=== PATIENT | female | born 1985 | race Caucasian/White ===

== ENCOUNTER 2017-06-09 17:00 | Emergency (ER) | payer OTHER ==
[2017-06-09 17:14] VITALS: PULSE 76; RESP 18
--- NOTE | 2017-06-09 18:05 | ED ---
SOB HPI - General Chief Complaint: Shortness of Breath Stated Complaint: Difficulty Breathing Time Seen by Provider: 06/09/17 17:21 Source: patient, RN notes reviewed Mode of arrival: ambulatory Limitations: no limitations - History of Present Illness Initial Comments: This a 31-year-old female presents emergency Department chief complaint of shortness of breath. Patient states that she had a sudden onset of right-sided back and chest pain that started earlier today while showering. Patient has a history of spontaneous pneumothorax with chest tube. Patient states that this pain feels exactly the same. She states that feels like some stabbing her right lung. Patient states she does have some discomfort with deep inspiration. Denies any left-sided chest pain or palpitations denies headache, dizziness, trauma, nausea vomiting. - Related Data Home Medications Medication Instructions Recorded Confirmed Pnv,Calcium 72/Iron/Folic Acid 1 tab PO DAILY 06/09/17 06/09/17 [ Plus Tablet] Allergies Allergy/AdvReac Type Severity Reaction Status Date / Time No Known Allergies Allergy Verified 06/09/17 17:40 Review of Systems ROS Statement: Those systems with pertinent positive or pertinent negative responses have been documented in the HPI. ROS Other: All systems not noted in ROS Statement are negative. Past Medical History Additional Past Medical History / Comment(s): right lung collapsed in November 2016 History of Any Multi-Drug Resistant Organisms: MRSA Date of last positivie culture/infection: right buttock MDRO Source:: 2007 Additional Past Surgical History / Comment(s): laproscopic surger for endometriosis Past Psychological History: No Psychological Hx Reported Smoking Status: Never smoker Past Alcohol Use History: Occasional Past Drug Use History: None Reported General Exam Limitations: no limitations General appearance: alert, in no apparent distress Head exam: Present: atraumatic, normocephalic, normal inspection Eye exam: Present: normal appearance, PERRL, EOMI. Absent: scleral icterus, conjunctival injection, periorbital swelling ENT exam: Present: normal exam, normal oropharynx, mucous membranes moist, TM's normal bilaterally Neck exam: Present: normal inspection, full ROM. Absent: tenderness, meningismus, lymphadenopathy Respiratory exam: Present: decreased breath sounds (Very minimal on the right). Absent: normal lung sounds bilaterally, respiratory distress, wheezes, rales, rhonchi, stridor Cardiovascular Exam: Present: regular rate, normal rhythm, normal heart sounds. Absent: systolic murmur, diastolic murmur, rubs, gallop, clicks Course Vital Signs 06/09/17 17:09 Temperature 97.6 F Pulse Rate 76 Respiratory 18 Rate Blood Pressure 128/60 O2 Sat by Pulse 100 Oximetry Medical Decision Making - Medical Decision Making 31-year-old female presented for shortness of breath. Patient has a very small pneumothorax in the right lung. Radiologist did notify me of this pneumothorax. She did not meet criteria for chest tube at this time. She will have repeat x-ray tomorrow if symptoms worsen she may need a chest tube this was discussed with the patient. Patient states that if symptoms do get worse that she wants to be seen at the [facility] and she will drive there. Disposition Clinical Impression: Pneumothorax on right Disposition: HOME SELF-CARE Condition: Stable Instructions: Spontaneous Pneumothorax (ED) Additional Instructions: Have repeat x-ray tomorrow.Please return to the Emergency Department if symptoms worsen or any other concerns. Referrals: None,Stated [Primary Care Provider] - 1-2 days Time of Disposition: 18:25
--- NOTE | 2017-06-09 18:11 | XR ---
EXAMINATION TYPE: XR chest 2V DATE OF EXAM: 06/09/2017 COMPARISON: NONE HISTORY: Shortness of breath and chest pain on the right side. She has a history of a pneumothorax. TECHNIQUE: Frontal and lateral views of the chest are obtained. FINDINGS: Small pneumothorax is identified in the right lung apex. The lungs are otherwise clear. Th ere is no pneumothorax or pleural effusion the cardiac silhouette is within normal limits. IMPRESSION: Small right-sided pneumothorax. Findings discussed over the phone with physician assistant Leos by Dr. Lutz at 1805 on June 09, 2017.
[2017-06-09 18:58] VITALS: BP 107/62; TEMP 97.8
== END 2017-06-09 18:50 | disposition home or self-care (01) ==
LOC: EC 17:00
DX: J93.9 Pneumothorax, unspecified (principal); Z86.14 Personal history of Methicillin resistant Staphylococcus aureus infection; Z79.899 Other long term (current) drug therapy
CPT/HCPCS: 71020; 99284

== ENCOUNTER → 2018-01-28 | Outpatient (CLI) | payer OTHER ==
--- NOTE | 2018-01-29 08:59 | CT ---
EXAMINATION TYPE: CT chest w con DATE OF EXAM: 01/28/2018 COMPARISON: Chest radiograph dated 06/10/2017 HISTORY: Hx of pneumothorax. Follow-up exam. CT DLP: 427 mGycm. Automated Exposure Control for Dose Reduction was Utilized. TECHNIQUE: CT scan of the thorax is performed following with IV Contrast, patient injected with 100 mL of Isovue 300. FINDINGS: LUNGS: The lungs are grossly clear, there is no concerning parenchymal mass or nodule identified. T here is no pleural effusion or pneumothorax seen. The tracheobronchial tree is patent. MEDIASTINUM: There are no greater than 1 cm hilar or mediastinal lymph nodes. There is triangular-sh aped residual thymic tissue within the anterior superior mediastinum. No pericardial effusion is seen . OTHER: No additional significant abnormality is seen. IMPRESSION: No recurrent pneumothorax, emphysematous change, or interstitial lung disease. No focal c onsolidation.
== END | disposition home or self-care (01) ==
LOC: RADCTMAIN 15:58
PROVIDERS: ATTEND Internal Medicine Critical Care Medicine
DX: J93.9 Pneumothorax, unspecified (principal)
CPT/HCPCS: 71260; Q9967

== ENCOUNTER → 2018-02-13 | Outpatient (CLI) | payer OTHER ==
[2018-02-13 14:45] LABS: Basophils % (A) 0 %; Eosinophils # (A) 0.1 k/uL (0-0.7); Eosinophils % (A) 1 %; HCT 40.8 % (34.0-46.0); HGB 13.2 gm/dL (11.4-16.0); Lymphocytes # (A) 1.3 k/uL (1.0-4.8); Lymphocytes % (A) 24 %; MCH 28.2 pg (25.0-35.0); MCHC 32.4 g/dL (31.0-37.0); Mean Platelet Volume 7.9; Monocytes # (A) 0.3 k/uL (0-1.0); Monocytes % (A) 5 %; Neutrophils # (A) 3.8 k/uL (1.3-7.7); Neutrophils % (A) 68 %; Platelet Count 159 k/uL (150-450); RBC 4.69 m/uL (3.80-5.40); RDW 13.6 % (11.5-15.5); WBC 5.7 k/uL (3.8-10.6)
[2018-02-13 14:46] LABS: Appearance,Urine Clear (Clear); Bacteria,Urine Rare /hpf; Bilirubin,Urine Negative (Negative); Blood,Urine Negative (Negative); Color,Urine Yellow; Glucose,Urine (UA) Negative (Negative); Ketones,Urine Negative (Negative); Leukocyte Esterase,Urine Moderate (Negative); Mucus,Urine Rare /hpf; Nitrite,Urine Negative (Negative); Protein,Urine Negative (Negative); RBC,Urine 3 /hpf (0-5); Specific Gravity,Urine 1.019 (1.001-1.035); Squamous Epithelial Cell,Urine 4 /hpf (0-4); Urobilinogen,Urine <2.0 mg/dL (<2.0); WBC,Urine 4 /hpf (0-5)
[2018-02-13 14:58] LABS: Potassium 4.2 mmol/L (3.5-5.1)
== END | disposition home or self-care (01) ==
LOC: LABWHC1 13:56
PROVIDERS: ATTEND Thoracic Surgery (Cardiothoracic Vascular Surgery)
DX: Z01.812 Encounter for preprocedural laboratory examination (principal); J93.11 Primary spontaneous pneumothorax
CPT/HCPCS: 36415; 80051; 81001; 82565; 84520; 85025

== ENCOUNTER 2018-02-27 05:48 | Inpatient (IN) | payer OTHER ==
[2018-02-20 10:52] VITALS: BMI 20.5
[~2018-02-27 05:48] MED LIST: DEXAMETHASONE SOD PHOSPHATE 10 MG/ML 1 ML VIAL IV ONE; LACTATED RINGERS 1,000 ML IV SCH; MIDAZOLAM 2 MG/2 ML VIAL IV PRN; ONDANSETRON 4 MG/2 ML VIAL IVP ONE; ceFAZolin IN SWFI 2 GM/20 ML SYRINGE IVP ONE
[2018-02-27] MEDS ORDERED: LIDOCAINE 1% 20 ML VIAL (10MG/ML) FOR IV START INTRADERMA ONE (06:39)
[2018-02-27] MEDS ORDERED: MIDAZOLAM 2 MG/2 ML VIAL ONE (07:29)
[2018-02-27] MEDS ORDERED: PROPOFOL 10 MG/ML 20 ML VIAL IV ONE (07:29)
[2018-02-27] MEDS ORDERED: NEOSTIGMINE 1 MG/ML 10 ML VIAL ONE (07:29)
[2018-02-27] MEDS ORDERED: SUCCINYLCHOLINE CHLORIDE 100 MG/5 ML SYR IV ONE (07:29)
[2018-02-27] MEDS ORDERED: GLYCOPYRROLATE 0.2 MG/ML 2 ML VIAL ONE (07:29)
[2018-02-27] MEDS ORDERED: ROCURONIUM BROMIDE 10 MG/ML 10 ML VIAL IV ONE (07:29)
[2018-02-27] MEDS ORDERED: fentaNYL (PF) 50 MCG/ML 2 ML AMP ONE (07:29)
[2018-02-27] MEDS ORDERED: LIDOCAINE 1% INJ 10MG/ML (20 ML MDV) ONE (07:29)
[2018-02-27] MEDS ORDERED: BUPIVACAINE (PF) 0.5% 30 ML VIAL SQ ONE ×2 (08:07)
[2018-02-27] MEDS ORDERED: diphenhydrAMINE 50 MG/ML 1 ML VIAL IVP ONE (09:40)
[2018-02-27] MEDS: HYDROmorphone 0.5 MG/0.5 ML SYRINGE IVP PRN ×7 (09:40→14:19)
--- NOTE | 2018-02-27 10:08 | XR ---
EXAMINATION TYPE: XR chest 1V portable DATE OF EXAM: 02/27/2018 COMPARISON: 01/28/2018 HISTORY: Post VATS TECHNIQUE: Single frontal view of the chest is obtained. FINDINGS: There is a right-sided thoracostomy tube in place post vacuum-assisted thoracostomy proced ure with post thoracostomy changes seen of the right lateral chest and subcutaneous emphysema or soft tissue swelling. Likely pleural reaction versus small residual pneumothorax measures 2 mm in greates t thickness of the right lateral lung apex. Patchy left-sided linear opacities likely relate to atele ctasis and exaggerated by rotation. Osseous structures are intact. Cardiomediastinal silhouette is wi thin normal limits. IMPRESSION: Status post VATS procedure with new right thoracostomy tube and likely 2 mm pleural reac tion versus small residual pneumothorax that can be reassessed on follow-up exams. New minimal left-s ided segmental scattered atelectasis.
--- NOTE | 2018-02-27 10:55 | P.OP ---
Date of Procedure: 02/27/18 Preoperative Diagnosis: Recurrent right spontaneous pneumothorax Postoperative Diagnosis: Same Procedure(s) Performed: Right thoracoscopy with staple apical blebs and mechanical pleurodesis Anesthesia: RIVKA Surgeon: Alden Camacho Call Center Director #1: Phil Gaspar Estimated Blood Loss (ml): 10 IV fluids (ml): 1,000 Urine output (ml): 0 Pathology: other ([place] right upper lobe lung) Condition: stable Disposition: PACU Indications for Procedure: 32-year-old female with recurrent right-sided pneumothorax Operative Findings: Adhesions at the site of previous chest tubes, small area of blebs at apex of lung Description of Procedure: The patient was brought to the operating room, placed supine on the operating table, anesthetized and intubated with a double-lumen endotracheal tube. Tube was positioned with fiberoptic bronchoscopy. Patient was placed in the left lateral decubitus position and the right chest sterilely prepped and draped. Single lung ventilation ensued. 3 one-inch incisions were made in the right chest cavity and the video thoracoscope was introduced. There were adhesions at the site of previous chest tube placement and these were taken down with electrocautery. The entire lung was examined carefully. There were small blebs present in the apex. These were resected with multiple firings of Endo SANJANA stapler. Once we were comfortable that we had excised all of the abnormal tissue, mechanical pleurodesis was performed to the chest wall using sponges. A 28-Polish chest tube was placed through separate stab incision and positioned posterior apically. Chest tube was secured with 0 Ethibond. Chest was irrigated out with some saline and the lung expanded under direct thoracoscopic vision. Thoracoscope was removed. Rib blocks were performed at the level of the incisions with half percent Marcaine. Incisions were closed with layers of Vicryl suture. Dry sterile dressings were applied the patient was turned supine and extubated and transferred to recovery in stable condition.
[2018-02-27] MEDS ORDERED: ONDANSETRON 4 MG/2 ML VIAL IVP PRN (15:09)
[2018-02-27] MEDS ORDERED: ACETAMINOPHEN TAB 325 MG TAB PO PRN (15:09)
[2018-02-27] MEDS ORDERED: DEXTROSE 5%-0.45% NACL 1,000 ML IV SCH (15:09)
[2018-02-27] MEDS ORDERED: IPRATROPIUM-ALBUTEROL 3 ML NEB IH PRN (15:09)
[2018-02-27] MEDS: IPRATROPIUM-ALBUTEROL 3 ML NEB IH SCH ×2 (16:21→19:42)
[2018-02-27] MEDS: ceFAZolin IN SWFI 2 GM/20 ML SYRINGE IVP SCH (16:57)
[2018-02-27] MEDS: KETOROLAC 30 MG/ML 1 ML VIAL IVP SCH ×2 (16:58→20:15)
[2018-02-27] MEDS: traMADol 50 MG TAB PO SCH ×3 (17:21→22:29)
[2018-02-27] MEDS: HEPARIN SODIUM,PORCINE 5,000 UNIT/ML 1 ML VIAL SQ SCH (17:22)
[2018-02-27] MEDS: FAMOTIDINE 20 MG TAB PO SCH (20:19)
[2018-02-28] MEDS: HEPARIN SODIUM,PORCINE 5,000 UNIT/ML 1 ML VIAL SQ SCH ×2 (00:01→10:11)
[2018-02-28] MEDS: KETOROLAC 30 MG/ML 1 ML VIAL IVP SCH ×3 (00:01→12:20)
[2018-02-28] MEDS: ceFAZolin IN SWFI 2 GM/20 ML SYRINGE IVP SCH (00:01)
[2018-02-28 07:15] LABS: Basophils % (A) 0 %; Eosinophils % (A) 0 %; HGB 10.9 gm/dL (11.4-16.0); Lymphocytes # (A) 1.1 k/uL (1.0-4.8); Lymphocytes % (A) 14 %; MCH 27.6 pg (25.0-35.0); MCHC 32.2 g/dL (31.0-37.0); MCV 85.8 fL (80.0-100.0); Monocytes # (A) 0.6 k/uL (0-1.0); Monocytes % (A) 8 %; Neutrophils # (A) 6.2 k/uL (1.3-7.7); Neutrophils % (A) 78 %; Platelet Count 146 k/uL (150-450); RBC 3.96 m/uL (3.80-5.40); RDW 13.4 % (11.5-15.5)
[2018-02-28 07:25] LABS: Anion Gap 2 mmol/L; Blood Urea Nitrogen 11 mg/dL (7-17); Calcium 8.4 mg/dL (8.4-10.2); Carbon Dioxide 30 mmol/L (22-30); Chloride 104 mmol/L (98-107); Glucose 98 mg/dL (74-99); Potassium 4.4 mmol/L (3.5-5.1); Sodium 136 mmol/L (137-145)
[2018-02-28] MEDS: IPRATROPIUM-ALBUTEROL 3 ML NEB IH SCH ×4 (07:50→16:08)
--- NOTE | 2018-02-28 09:22 | XR ---
EXAMINATION TYPE: XR chest 1V DATE OF EXAM: 02/28/2018 COMPARISON: 02/27/2018 HISTORY: Chest pain. Postop VATS TECHNIQUE: Single frontal view of the chest is obtained. FINDINGS: Right apical pneumothorax persists and is sliver in size. Surgical changes seen within the right apic al region. Chest tube is in place unchanged in position from prior examination. The lungs are otherwi se clear. Mediastinum is midline. IMPRESSION: 1. Stable postoperative changes with tiny right apical pneumothorax.
[2018-02-28] MEDS: traMADol 50 MG TAB PO SCH ×2 (10:16→14:42)
[2018-02-28] MEDS: FAMOTIDINE 20 MG TAB PO SCH (10:17)
[2018-02-28 11:16] VITALS: TEMP 98.1
[2018-02-28] MEDS ORDERED: MULTIVITAMINS, THERA 1 EACH TAB PO SCH (12:00)
--- NOTE | 2018-02-28 12:00 | P.PN ---
Subjective Progress Note Date: 02/28/18 Principal diagnosis: Recurrent right spontaneous pneumothorax. POD #1 right thoracoscopy with stable apical blebs and mechanical pleurodesis. The patient is sitting up to bedside edge. She is in no acute distress. Complaining of pain 4 out of 10 on the pain scale to her right chest tube insertion site. Right pleural chest tube remains in place to water seal, no air leak present. She is achieving 1000 L on her incentive spirometry. She has been ambulating in the [address] [place] [address] without difficulty. Objective - Vital Signs Vital signs: Vital Signs Temp 98.5 F 02/28/18 03:22 Pulse 65 02/28/18 03:22 Resp 16 02/28/18 03:22 BP 108/61 02/28/18 03:22 Pulse Ox 99 02/28/18 07:50 Intake & Output 02/27/18 02/28/18 02/28/18 18:59 06:59 18:59 Intake Total 1300 320 Output Total 325 1690 Balance 975 -1370 Weight 56.5 kg Intake: IV 1300 Intake, IV Titration 320 Amount Dextrose 5%-0.45% NaCl 1, 320 000 ml @ 40 mls/hr IV . Q24H ELEAZAR Rx#:[id number] Output: Chest Tube Drainage 40 Chest Tube Right Lateral 40 Chest Drainage 50 Right 50 Urine 200 1600 Estimated Blood Loss 125 Other: Voiding Method Toilet Toilet # Voids 2 - Constitutional General appearance: Present: cooperative, no acute distress - Respiratory Details: Lung sounds are essentially clear throughout. Respirations are symmetrical and nonlabored. Oxygen saturation are 99% on room air. She is achieving 1000 L on her incentive spirometry. Right pleural chest tube in place to water seal. No air leak present. Draining thin serosanguineous drainage, 210 mL output since surgery. - Cardiovascular Details: Regular rhythm and rate. S1 and S2 present, negative for S3, gallop or murmur. Remote telemetry showing normal sinus rhythm heart rate 71. No edema present. - Gastrointestinal Gastrointestinal Comment(s): Abdomen is soft, nontender and nondistended. Active bowel sounds to all 4 abdominal quadrants. No guarding or rigidity. No organomegaly. Tolerating oral intake. - Genitourinary Genitourinary Comment(s): Voiding clear yellow urine. - Integumentary Integumentary Comment(s): Skin is warm and dry. No clubbing or cyanosis present. Right lateral chest incisions clean dry and approximated. No drainage or redness present. - Neurologic Neurologic Comment(s): No focal deficits. Neurologic: Present: CNII-XII intact - Musculoskeletal Musculoskeletal: Present: gait normal, strength equal bilaterally - Psychiatric Psychiatric: Present: A&O x's 3, appropriate affect, intact judgment & insight - Allied health notes Allied health notes reviewed: nursing - Labs CBC & Chem 7: 02/28/18 06:39 02/28/18 06:39 Labs: Abnormal Lab Results - Last 24 Hours (Table) 02/28/18 02/28/18 Range/Units 06:39 06:39 Hgb 10.9 L (11.4-16.0) gm/dL Plt Count 146 L (150-450) k/uL Sodium 136 L (137-145) mmol/L - Imaging and Cardiology Chest x-ray: report reviewed, image reviewed Assessment and Plan (1) Pneumothorax, right Current Visit: Yes Status: Acute Code(s): J93.9 - PNEUMOTHORAX, UNSPECIFIED SNOMED Code(s): 518445932 Plan: 1. We will remove her right pleural chest tube, obtain a chest x-ray 1 hour post chest tube removal. 2. DVT and GI prophylaxis. 3. Pain control per current when necessary orders. 4. Encourage use of her incentive spirometry every hour while awake. 5. Surgical pathology results pending. 6. More recommendations to follow as patient progresses in her care. Anticipate discharge home within the next 24 hours. Time with Patient: Greater than 30
--- NOTE | 2018-02-28 13:15 | XR ---
EXAMINATION TYPE: XR chest 2V DATE OF EXAM: 02/28/2018 COMPARISON: 02/28/2018 HISTORY: Chest tube removal status post VATS TECHNIQUE: Frontal and lateral views of the chest are obtained. FINDINGS: There is no focal air space opacity. Right-sided chest tube has been removed. Right apical postoperative changes noted. There appears to b e a sliver pneumothorax right lung apex. The cardiac silhouette size is within normal limits. The osseous structures are grossly intact. IMPRESSION: 1. Right-sided chest tube has been removed. Right apical postoperative changes noted. There appears to be sliver pneumothorax right lung apex.
[2018-02-28 14:10] VITALS: BP 112/61; RESP 18
--- NOTE | 2018-02-28 14:55 | P.DS ---
Providers Date of admission: 02/27/18 05:48 Expected date of discharge: 02/28/18 Attending physician: Alden Camacho Primary care physician: Stated None - Discharge Diagnosis(es) (1) Pneumothorax, right Current Visit: Yes Status: Acute Hospital Course: FINAL DIAGNOSIS: 1. Recurrent right spontaneous pneumothorax PRINCIPAL PROCEDURE: 1. Right thoracoscopy with staple apical blebs and mechanical pleurodesis HISTORY OF PRESENT ILLNESS: This is a 32-year-old female patient who is followed by Dr. Steven Wheeler from pulmonary medicine on an outpatient basis. Patient has past medical history significant for right-sided chest pain which radiated to her back which would come and go over a several week period. The patient reports that she has had these symptoms on and off for the past 8 or 9 years. Just over a year ago the patient was and was being evaluated by her general teller who she reported her complaints of chest pain to. Her general teller on a physical exam noticed that she had absent right breath sounds. Subsequently a chest x-ray was completed which demonstrated an 85% right pneumothorax. She was subsequently transferred to [place] for further treatment and evaluation. During her hospitalization and [place] she had a chest tube with persistent air leak which resolved over about a 2 week period. Over the past year she continued to have complaints of back pain and some shortness of breath and was subsequently referred to Dr. Wheeler from pulmonary medicine. While being evaluated by Dr. Wheeler A chest x-ray was completed which we demonstrated a 20% right apical pneumothorax. Due to the patient's history of recurrent right pneumothorax she was referred to Dr. Alden Camacho from cardiothoracic surgery for recommendations on possible surgical intervention. Risks and benefits of undergoing a right thoracoscopic procedure were discussed with the patient by Dr. Alden Camacho and the patient requested to proceed with surgery. HOSPITAL COURSE: The patient was admitted to the hospital and after obtaining consent was taken to the operating room where Dr. Alden Camacho performed a right thoracoscopic with staple of apical blebs and mechanical pleurodesis. The patient was subsequently recovered, transferred to [address] [place] [address] for further monitoring and rehabilitation. A right pleural chest tube was in place and was placed on waterseal postoperatively and was removed today 2017 without incident. Patient has been on room air with oxygen saturations are 99%, has been walking in the hallway without difficulty. The patient has received verbal and written discharge instructions and a list of her medications. COMPLICATIONS: There were no postoperative complications. DISCHARGE INSTRUCTIONS: 1. No driving for 2 weeks, or until physician gives their ok. 2. The patient should sleep in their own bed, no medical bed needed. 3. May remove her right chest dressing in 48 hours, and shower. 4. She will need a follow up chest x-ray prior to seeing Dr. Camacho on 2017. 5. The patient is expected to continue the prescribed walking program. 6. Continue pain control per as needed orders. 7. Continue with incentive spirometry 8. Routine incision care, no ointments, lotions or powders on the incisions. 9. Please notify surgeon/nurse practitioner for temperature greater than 101F or purulent drainage from incisions. Plan - Discharge Summary Discharge Rx Participant: Yes New Discharge Prescriptions: New Acetaminophen Tab [Tylenol] 650 mg PO Q6HR PRN tab PRN Reason: Fever and/ or MILD Pain traMADol HCl [Ultram] 50 mg PO QID 3 Days #12 tab Continue Multivitamins, Thera [Multivitamin (formulary)] 1 tab PO DAILY Discharge Medication List Multivitamins, Thera [Multivitamin (formulary)] 1 tab PO DAILY 02/20/18 [History ] Acetaminophen Tab [Tylenol] 650 mg PO Q6HR PRN tab 02/28/18 [Rx] traMADol HCl [Ultram] 50 mg PO QID 3 Days #12 tab 02/28/18 [Rx] Follow up Appointment(s)/Referral(s): Alden Camacho MD [STAFF PHYSICIAN] - 03/13/18 1:45 pm Steven Wheeler DO [Doctor of Osteopathic Medicine] - 1 Week Ambulatory/Diagnostic Orders: XR chest 2V [RAD.AMB] Time Frame: 03/13/18, Facility: [facility], Location: [facility] Activity/Diet/Wound Care/Special Instructions: DISCHARGE INSTRUCTIONS: 1. No driving for 2 weeks, or until physician gives their ok. 2. No lifting, pushing, or pulling more than 10 pounds for 2 weeks. The physician will advise of any restriction changes. 3. Continue pain control per as needed orders. 4. Continue with incentive spirometry and splinting until otherwise directed by the physician. 5. May shower daily using liquid antibacterial soap 48 hours after chest tube removal. No tub baths, hot tubs for 2 weeks. 6. Routine incision care. No powders, lotions, ointments on incisions. 7. Please call surgeon/MOLD HOISTER for temp greater than 101 F or purulent drainage from incisions. 8. Narcotic medications were discussed with the patient, including the potential for misuse, addiction, and abuse. Opiod Start Talking form was reviewed with the patient. Discharge Disposition: HOME SELF-CARE
[2018-02-28 16:21] VITALS: PULSE 80
== END 2018-02-28 17:04 | disposition home or self-care (01) | DRG 165 ==
LOC: 2ORMAIN 05:48 → 6SEL 14:28
PROVIDERS: ADMIT Thoracic Surgery (Cardiothoracic Vascular Surgery); ATTEND Thoracic Surgery (Cardiothoracic Vascular Surgery)
PROC: 0BBC4ZX Excision of Right Upper Lung Lobe, Percutaneous Endoscopic Approach, Diagnostic (ICD-10-PCS; 2018-02-27)
PROC: 0BQC4ZZ Repair Right Upper Lung Lobe, Percutaneous Endoscopic Approach (ICD-10-PCS; 2018-02-27)
PROC: 0W9940Z Drainage of Right Pleural Cavity with Drainage Device, Percutaneous Endoscopic Approach (ICD-10-PCS; 2018-02-27)
PROC: 0B5N4ZZ Destruction of Right Pleura, Percutaneous Endoscopic Approach (ICD-10-PCS; principal; 2018-02-27 07:30)
PROC: 0BPKX0Z Removal of Drainage Device from Right Lung, External Approach (ICD-10-PCS; 2018-02-28)
DX: J93.83 Other pneumothorax (principal)
CPT/HCPCS: 71045; 71046; 80048; 85025; 88307; 94640; 94760

== ENCOUNTER → 2018-03-07 | Outpatient (CLI) | payer OTHER ==
--- NOTE | 2018-03-07 14:13 | XR ---
EXAMINATION TYPE: XR chest 2V DATE OF EXAM: 03/07/2018 COMPARISON: Chest x-ray February 28, 2018. CT chest January 28, 2018. HISTORY: Spontaneous pneumothorax. TECHNIQUE: Frontal and lateral views of the chest are obtained. FINDINGS: There is persistent curvilinear density lateral aspect right suprahilar level. There may b e some lung markings peripheral to this. There is new visualization of horizontal density at level of right minor fissure could reflect linear atelectasis or tiny amount of trapped fluid No mediastinal shift is seen. No suspicious focal airspace opacity or pneumothorax is noted. The cardiac silhouette size is within normal limits. The osseous structures are intact. IMPRESSION: Cannot exclude residual tiny right pneumothorax. At minimum short-term progress two-view chest x-ray is advised.
== END | disposition home or self-care (01) ==
LOC: RADXRMAIN 13:47
PROVIDERS: ATTEND Thoracic Surgery (Cardiothoracic Vascular Surgery)
DX: Z09 Encounter for follow-up examination after completed treatment for conditions other than malignant neoplasm (principal); Z98.890 Other specified postprocedural states
CPT/HCPCS: 71046

== ENCOUNTER → 2018-05-29 | Outpatient (CLI) | payer OTHER ==
[2018-05-29 16:29] LABS: Basophils % (A) 1 %; Eosinophils # (A) 0.1 k/uL (0-0.7); Eosinophils % (A) 1 %; HCT 41.5 % (34.0-46.0); HGB 13.7 gm/dL (11.4-16.0); Lymphocytes # (A) 1.1 k/uL (1.0-4.8); Lymphocytes % (A) 21 %; MCH 27.8 pg (25.0-35.0); Mean Platelet Volume 7.6; Monocytes # (A) 0.3 k/uL (0-1.0); Monocytes % (A) 5 %; Neutrophils # (A) 3.9 k/uL (1.3-7.7); Neutrophils % (A) 71 %; Platelet Count 168 k/uL (150-450); RBC 4.95 m/uL (3.80-5.40); RDW 13.1 % (11.5-15.5); WBC 5.5 k/uL (3.8-10.6)
== END | disposition home or self-care (01) ==
LOC: LABPAT 13:53
PROVIDERS: ATTEND Thoracic Surgery (Cardiothoracic Vascular Surgery)
DX: Z01.812 Encounter for preprocedural laboratory examination (principal); J93.9 Pneumothorax, unspecified
CPT/HCPCS: 36415; 85025

== ENCOUNTER → 2018-05-29 | Outpatient (CLI) | payer OTHER ==
--- NOTE | 2018-05-29 13:29 | XR ---
EXAMINATION TYPE: XR chest 2V DATE OF EXAM: 05/29/2018 COMPARISON: 05/29/2018 HISTORY: Recurrent pneumothoraces TECHNIQUE: Frontal and lateral views of the chest are obtained. FINDINGS: There is a recurrent right-sided pneumothorax with maximal right apical pleural separation of 1 cm and right basilar pleural separation of 1.4 cm. There also appears to be a scant amount of f luid likely hydropneumothorax. Although the right pneumothorax is estimated to be 15-20% this could b e larger anteriorly as there is right to left mediastinal shift concerning for tension pneumothorax. Cardia mediastinal silhouette is nonenlarged. No focal consolidation or left-sided pneumothorax. Osse ous structures are grossly intact. IMPRESSION: Recurrent right-sided pneumothorax with findings suspicious for hydropneumothorax and te nsion pneumothorax. Findings were communicating to the ordering physician's office at 1:12 PM with re commendation for the patient to go to the ER.
== END | disposition home or self-care (01) ==
LOC: RADXRMAIN 12:38
PROVIDERS: ATTEND Thoracic Surgery (Cardiothoracic Vascular Surgery)
DX: J93.9 Pneumothorax, unspecified (principal)
CPT/HCPCS: 71046